=== PATIENT | female | born 1980 | race African-American/Black ===

== ENCOUNTER 2023-01-01 23:05 | Emergency (ER) | payer BC, SELFPAY ==
[2023-01-01 23:22] VITALS: BP 131/71; PULSE 87; RESP 16; TEMP 37; O2SAT 98; BMI 22.1
[2023-01-02 00:10] LABS: MANUAL DIFF FLAG NO
[2023-01-02 00:13] LABS: Basophils Percent Auto 0.6 % (0-2); Eosinophils Absolute Auto 0.3 X10*3/uL (0.0-0.4); Eosinophils Percent Auto 4.4 % (0-4); Hematocrit 37.7 % (37.0-47.0); Hemoglobin 11.8 g/dl (12.0-16.0); Imm Gran Abs Auto 0.01 X10*3/uL (0.00-0.03); Imm Gran Pct Auto 0.2 % (0.0-0.4); Lymphocytes Absolute Auto 1.6 X10*3/uL (1.2-4.9); Lymphocytes Percent Auto 23.7 % (20-40); Mean Corpuscular HGB Conc 31.3 g/dl (31.0-35.0); Mean Corpuscular Volume 86.3 fL (80.0-98.0); Mean Platelet Volume 12.4 fL (9.4-12.3); Monocytes Absolute Auto 0.5 X10*3/uL (0.1-1.2); Monocytes Percent Auto 7.9 % (2-11); Neutrophils Absolute Auto 4.2 x10*3/uL (2.0-8.3); Neutrophils Percent Auto 63.2 % (45-73); Platelet Count 190 X10*3/uL (160-400); Red Blood Count 4.37 X10*6/uL (4.20-5.50); Red Cell Distribution Width 15.4 % (11.0-16.0); White Blood Count 6.6 X10*3/uL (4.8-10.8)
[2023-01-02 00:29] LABS: Anion Gap 10 (12-20); Blood Urea Nitrogen 13 mg/dL (9-16); Calcium 9.2 mg/dL (8.4-10.2); Carbon Dioxide 24 mmol/L (22-29); Chloride 109 mmol/L (96-108); Creatinine Clr Calc Pharmacy 58.8; Estimated Glomerular Filt Rate 58; Glucose Random 97 mg/dL (60-115); Potassium 4.3 mmol/L (3.3-5.1); Sodium 139 mmol/L (135-145)
--- NOTE | 2023-01-02 01:53 | ED_ITS ---
HPI - Wound/Laceration General Chief Complaint: Wound/Laceration Stated Complaint: ?Swelling Time Seen by Provider: 01/02/23 01:53 Source: patient Mode of arrival: ambulatory Limitations: no limitations History of Present Illness HPI narrative: Patient was at the event 3 days ago bitten by some insects comes here with redness swelling and pain at the right buttock area earlier patient expressed some pus no fever no chills Related Data Previous Rx's Medication Instructions Recorded cephalexin 500 mg capsule 500 mg PO QID 10 days #40 caps 01/02/23 doxycycline hyclate 100 mg tablet 100 mg PO BID #20 tabs 01/02/23 Allergies Allergy/AdvReac Type Severity Reaction Status Date / Time Penicillins Allergy Severe Anaphylaxis Verified 01/01/23 23:29 Review of Systems 2 Review of Systems: Yes all other systems are reviewed and are negative [facility] Social History Social History Alcohol intake: current Alcohol intake frequency: holidays/special occasions only Smoked in Last 30 Days: No Use of substances other than those prescribed or required for medical reasons: No Advance Directives: No Advance Directives Information Provided: Yes Patient : No Physical Exam 2 Vital Signs: Vital Signs: Last Vital Signs Temp 98.9 F 01/02/23 03:18 Pulse 74 01/02/23 03:18 Resp 16 01/02/23 03:18 BP 124/71 01/02/23 03:18 Pulse Ox 98 01/02/23 03:18 O2 Del Method Room Air 01/02/23 03:18 BMI result Body Mass Index 22.1 Extrem: Upper/lower leg/hip images: 1. Small indurated area with surrounding erythema no palpable abscess no pus discharge Medications Administered Discontinued Medications Generic Name Dose Route Start Last Admin Trade Name Freq PRN Reason Stop Dose Admin Cephalexin HCl 500 mg 01/02/23 03:05 01/02/23 03:19 Cephalexin 500 Mg Capsule PO 01/02/23 03:06 500 mg ONCE ONE Administration Doxycycline Monohydrate 100 mg 01/02/23 03:05 01/02/23 03:19 Doxycycline Monohydrate 100 Mg Capsule PO 01/02/23 03:06 100 mg ONCE ONE Administration Medical Decision Making Medical Decision Making MDM Narrative: Patient with infected insect bite of the right gluteal area with surrounding cellulitis no abscess palpable discharge patient home on doxycycline and Keflex Lab Data MDM Lab Attestation statement: I reviewed the patient's lab results. 01/02/23 00:04 01/02/23 00:04 Labs: Lab Results 01/02/23 Range/Units 00:04 WBC 6.6 (4.8-10.8) X10*3/uL RBC 4.37 (4.20-5.50) X10*6/uL Hgb 11.8 L (12.0-16.0) g/dl Hct 37.7 (37.0-47.0) % MCV 86.3 (80.0-98.0) fL MCH 27.0 (27.0-33.0) pg MCHC 31.3 (31.0-35.0) g/dl RDW 15.4 (11.0-16.0) % Plt Count 190 (160-400) X10*3/uL MPV 12.4 H (9.4-12.3) fL Immature Gran % (Auto) 0.2 (0.0-0.4) % Neut % (Auto) 63.2 (45-73) % Lymph % (Auto) 23.7 (20-40) % [place] % (Auto) 7.9 (2-11) % Eos % (Auto) 4.4 H (0-4) % Baso % (Auto) 0.6 (0-2) % Lymph # (Auto) 1.6 (1.2-4.9) X10*3/uL [place] # (Auto) 0.5 (0.1-1.2) X10*3/uL Eos # (Auto) 0.3 (0.0-0.4) X10*3/uL Baso # (Auto) 0.0 (0.0-0.2) X10*3/uL Abs Immat Gran (auto) 0.01 (0.00-0.03) X10*3/uL Absolute Neuts (auto) 4.2 (2.0-8.3) x10*3/uL Absolute Nucleated RBC 0.000 (0.0-0.012) X10*3/uL Nucleated RBC % (auto) 0.0 (0.0-0.2) /100WBC Sodium 139 (135-145) mmol/L Potassium 4.3 (3.3-5.1) mmol/L Chloride 109 H (96-108) mmol/L Carbon Dioxide 24 (22-29) mmol/L Anion Gap 10 L (12-20) BUN 13 (9-16) mg/dL Creatinine 1.04 (0.5-1.4) mg/dL Estim Creat Clear Calc 58.8 Estimated GFR 58 Random Glucose 97 (60-115) mg/dL Calcium 9.2 (8.4-10.2) mg/dL Discharge Plan Discharge Clinical Impression: Infected insect bite Patient Disposition: Home, Self-Care Instructions: Cellulitis (ED), Insect Bite or Sting (ED) Additional Instructions: Take antibiotic as prescribed Report to the PCP/ER if worsening of the swelling or pus discharge or fever Prescriptions: New cephalexin 500 mg capsule 500 mg PO QID 10 Days Qty: 40 0RF doxycycline hyclate 100 mg tablet 100 mg PO BID Qty: 20 0RF Interventions: ED Discharge Assessment Last Done: 01/02/23 03:22 Discharge Date/Time: 01/02/23 03:23
[2023-01-02 03:18] VITALS: BP 124/71; PULSE 74; RESP 16; TEMP 37.2; O2SAT 98
[2023-01-02] MEDS: cephALEXin 500 MG CAPSULE PO (03:19)
[2023-01-02] MEDS: Doxycycline Monohydrate 100 MG CAPSULE PO (03:19)
== END 2023-01-02 03:23 | disposition home or self-care (01) ==
PROVIDERS: Emergency Provider Internal Medicine
DX: S30.860A Insect bite (nonvenomous) of lower back and pelvis, initial encounter (principal); S70.361A Insect bite (nonvenomous), right thigh, initial encounter; W57.XXXA Bitten or stung by nonvenomous insect and other nonvenomous arthropods, initial encounter; Y93.9 Activity, unspecified; Y92.9 Unspecified place or not applicable; Y99.9 Unspecified external cause status
CPT/HCPCS: 36415; 80048; 85025; 99283; 99284